=== PATIENT | male | born 1970 | race African-American/Black ===

== ENCOUNTER 2019-08-17 06:46 | Emergency (ER) | payer BC, SELFPAY ==
[2019-08-17 07:47] LABS: #Basophils 0.1 thou/uL (0.0-0.2); #Eosinphils 0.1 thou/uL (0.0-0.7); #Lymphocytes 1.4 thou/uL (1.20-3.40); #Monocytes 0.3 thou/uL (0.11-0.59); #Neutrophils 1.3 thou/uL (1.40-6.50); %Basophils 2.3 % (0.0-1.0); %Eosinophils 4.5 % (0.0-10.0); %Lymphocytes 43.1 % (21.0-51.0); %Monocytes 9.7 % (0.0-10.0); %Neutrophils 40.5 % (42.0-75.0); Hemoglobin 16.2 g/dL (14.0-18.0); Mean Corpuscular HGB CONC 35.2 g/dL (32.0-36.0); Mean Corpuscular Hemoglobin 31.4 pg (27.0-31.0); Mean Corpuscular Volume 89.2 fL (78.0-98.0); Mean Platelet Volume 6.5 fL (7.4-10.4); Platelet Count 186 thou/uL (130-400); RBC Distribution Width 12.2 % (11.5-14.5); Red Blood Cell (RBC) Count 5.16 mill/uL (4.70-6.10); White Blood Cell (WBC) Count 3.3 thou/uL (4.8-10.8)
[2019-08-17] MEDS ORDERED: Acetaminophen 500 MG TAB ONE (07:50)
[2019-08-17] MEDS ORDERED: Aspirin Chewable 81 MG TAB ONE (07:50)
[2019-08-17 08:40] LABS: Anion Gap 12 mmol/L (10-20); BUN (Urea Nitrogen) 17 mg/dL (8.9-20.6); Calc. Creatinine Clearance 0 mL/min (70-130); Calcium 9.5 mg/dL (7.8-10.44); Carbon Dioxide 22 mmol/L (22-29); Chloride 108 mmol/L (98-107); Estimated GFR-MDRD Greater than 90; Glucose 98 mg/dL (70-105); Potassium 3.7 mmol/L (3.5-5.1); Sodium 138 mmol/L (136-145)
--- NOTE | 2019-08-17 09:21 | RAD ---
CHEST TWO VIEWS: HISTORY: Left-sided chest pain. FINDINGS: Heart size is normal. Lungs are clear. No confluent pneumonia, overt edema or pleural effusion. IMPRESSION: No significant acute intrathoracic disease. POS: [facility]
--- NOTE | 2019-08-20 12:02 | EKG ---
Test Reason : Blood Pressure : / mmHG Vent. Rate : 062 BPM Atrial Rate : 062 BPM P-R Int : 184 ms QRS Dur : 082 ms QT Int : 386 ms P-R-T Axes : 060 007 034 degrees QTc Int : 391 ms Normal sinus rhythm Cannot rule out Anterior infarct , age undetermined Abnormal ECG Confirmed by FRACISCO RICH ([id number]), non linear editor BARBARA NAVA ([id number]) on 08/20/2019 12:02:34 PM Referred By: LAYLA Confirmed By:FRACISCO RICH
== END 2019-08-17 08:49 | disposition home or self-care (01) ==
LOC: ERS 06:46
DX: R07.9 Chest pain, unspecified (principal); R51 Headache
CPT/HCPCS: 36415; 71046; 80048; 84484; 85025; 93005

== ENCOUNTER 2020-01-16 10:00 | Emergency (ER) | payer SELFPAY ==
--- NOTE | 2020-01-16 10:44 | RAD ---
RIGHT SHOULDER 3 VIEWS: Date: 01/16/2020 HISTORY: Right shoulder pain. FINDINGS/IMPRESSION: There are degenerative changes in the acromioclavicular joint. No acute fracture, dislocation, or bon y destruction is seen. POS: OFF
[2020-01-16] MEDS ORDERED: Dexamethasone 10 MG/ML VIAL ONE (11:07)
[2020-01-16] MEDS ORDERED: Ketorolac Tromethamine 30 MG/ML VIAL ONE (11:07)
== END 2020-01-16 11:27 | disposition home or self-care (01) ==
LOC: ERS 10:00
DX: S43.401A Unspecified sprain of right shoulder joint, initial encounter (principal); X58.XXXA Exposure to other specified factors, initial encounter
CPT/HCPCS: 93005; 96372; J1100; J1885

== ENCOUNTER 2023-08-22 06:32 | Inpatient (IN) | payer SELFPAY ==
[2023-08-22] MEDS ORDERED: Piperacillin/Tazobactam 3.375 GM VIAL ONE (07:20)
[2023-08-22 07:47] LABS: #Eosinphils 0.1 thou/uL (0.0-0.7); #Monocytes 0.8 thou/uL (0.11-0.59); %Basophils 0.1 % (0.0-1.0); %Eosinophils 0.9 % (0.0-10.0); %Lymphocytes 23.2 % (21.0-51.0); %Monocytes 9.8 % (0.0-10.0); %Neutrophils 65.7 % (42.0-75.0); Hematocrit 49.6 % (42.0-52.0); Hemoglobin 17.7 g/dL (14.0-18.0); Mean Corpuscular HGB CONC 35.7 g/dL (32.0-36.0); Mean Corpuscular Hemoglobin 30.9 pg (27.0-31.0); Mean Corpuscular Volume 86.6 fl (78.0-98.0); Mean Platelet Volume 9.4 fL (7.4-10.4); Platelet Count 212 10x3/uL (130-400); RBC Distribution Width 12.7 % (11.5-14.5); Red Blood Cell (RBC) Count 5.73 mill/uL (4.70-6.10); White Blood Cell (WBC) Count 7.7 10x3/uL (4.8-10.8)
[2023-08-22] MEDS ORDERED: Vancomycin 1 GM/200 ML (FROZEN) BAG ONE (08:02)
[2023-08-22 08:03] LABS: ALT (SGPT) 21 U/L (8-55); AST (SGOT) 16 U/L (5-34); Albumin 4.4 g/dL (3.5-5.0); Alkaline Phosphatase 72 U/L (40-110); Anion Gap 15 mmol/L (10-20); BUN (Urea Nitrogen) 22 mg/dL (8.4-25.7); Bilirubin, Total 0.7 mg/dL (0.2-1.2); Calc. Creatinine Clearance 0 mL/min (70-130); Carbon Dioxide 25 mmol/L (22-29); Chloride 103 mmol/L (98-107); Estimated GFR 84; Globulin 4.3 g/dL (2.4-3.5); Glucose 127 mg/dL (70-105); Potassium 3.9 mmol/L (3.5-5.1); Protein, Total 8.7 g/dL (6.0-8.3); Sodium 139 mmol/L (136-145)
[2023-08-22] MEDS ORDERED: Boostrix 0.5 ML (Tdap) VIAL (>/=7 yrs of age) ONE (09:42)
[2023-08-22] MEDS ORDERED: Fentanyl 250 MCG/5 ML VIAL ONE (10:06)
[2023-08-22] MEDS ORDERED: Lidocaine 1% PF 5 ML VIAL ONE (10:50)
[2023-08-22] MEDS ORDERED: Ondansetron PF 4 MG/2 ML Vial ONE (10:50)
[2023-08-22] MEDS ORDERED: PROPOFOL 200 MG/20 ML VIAL ONE (10:50)
[2023-08-22] MEDS ORDERED: Phenylephrine 10 MG/ML VIAL ONE (11:04)
[2023-08-22] MEDS ORDERED: HYDROmorphone 2 MG/ML VIAL SLOW IVP PRN (11:15)
[2023-08-22] MEDS ORDERED: PACU-Morphine 4MG/ML VIAL SLOW IVP PRN (11:15)
[2023-08-22] MEDS ORDERED: Ketorolac Tromethamine 30 MG/ML VIAL IVP PRN (11:15)
[2023-08-22] MEDS ORDERED: Morphine Sulfate 2 MG/ML SYRINGE SLOW IVP PRN (11:15)
[2023-08-22] MEDS ORDERED: Promethazine HCl 25 MG/ML VIAL IM PRN (11:15)
[2023-08-22] MEDS ORDERED: Ondansetron HCl/PF 4 MG/2 ML Vial IVP PRN (11:15)
[2023-08-22] MEDS ORDERED: Morphine 2 MG/ML VIAL SLOW IVP PRN (11:39)
[2023-08-22] MEDS ORDERED: Morphine 4 MG/ML VIAL SLOW IVP PRN (11:39)
[2023-08-22] MEDS ORDERED: HYDROcodone/Acetaminophen 10/325 mg Tablet PO PRN ×2 (11:39)
[2023-08-22] MEDS ORDERED: Ondansetron PF 4 MG/2 ML Vial IVP PRN (11:39)
[2023-08-22] MEDS ORDERED: ANTIBIOTICS IVPB PRN (11:52)
[2023-08-22] MEDS ORDERED: Metoprolol Tartrate 5 MG/5 ML VIAL ONE ×2 (12:03→12:23)
[2023-08-22] MEDS ORDERED: Bupivacaine 0.25% HCL 30 ML VIAL ONE (12:12)
[2023-08-22] MEDS ORDERED: Vancomycin 1 GM VIAL ONE (12:12)
[2023-08-22] MEDS ORDERED: Metoprolol Tartrate 5 MG/5 ML VIAL IVP SCH (12:15)
[2023-08-22] MEDS ORDERED: fentaNYL 50 mcg/mL 1 mL Vial ONE (12:26)
[2023-08-22] MEDS ORDERED: Amlodipine 10 MG TAB PO SCH (13:15)
[2023-08-22] MEDS: Ketorolac Tromethamine 30 MG/ML VIAL IVP SCH ×2 (13:57→17:25)
[2023-08-22 15:50] VITALS: BMI 26.6
[2023-08-22] MEDS ORDERED: FLU VACC QS2023-24(6MOS UP)/PF 60 MCG/0.5 ML SYRINGE IM ONE (16:00)
[2023-08-22] MEDS: VANCOMYCIN 1.25 GM/250 ML BAG 1.25 GM in Premix Bag 1 BAG IVPB SCH (20:50)
[2023-08-23] MEDS: Ketorolac Tromethamine 30 MG/ML VIAL IVP SCH ×4 (00:59→17:16)
[2023-08-23] MEDS ORDERED: Acetaminophen 325 MG TAB PO PRN (08:20)
[2023-08-23] MEDS: VANCOMYCIN 1.25 GM/250 ML BAG 1.25 GM in Premix Bag 1 BAG IVPB SCH ×2 (09:01→21:05)
[2023-08-23 20:16] LABS: Vancomycin, Trough 7.9 ug/mL
[2023-08-24] MEDS: VANCOMYCIN 1.25 GM/250 ML BAG 1.25 GM in Premix Bag 1 BAG IVPB SCH ×2 (04:26→13:42)
[2023-08-24] MEDS ORDERED: Amlodipine 10 MG TAB PO SCH (13:15)
[2023-08-24] MEDS ORDERED: LevoFLOXacin 750 mg/D5W 750 MG in Premix Bag 1 BAG IVPB SCH (18:00)
[2023-08-25 05:40] LABS: Hematocrit 42.8 % (42.0-52.0); Hemoglobin 15.3 g/dL (14.0-18.0); Mean Corpuscular HGB CONC 35.7 g/dL (32.0-36.0); Mean Corpuscular Hemoglobin 30.9 pg (27.0-31.0); Mean Corpuscular Volume 86.5 fl (78.0-98.0); Platelet Count 199 10x3/uL (130-400); RBC Distribution Width 12.1 % (11.5-14.5); Red Blood Cell (RBC) Count 4.95 mill/uL (4.70-6.10); White Blood Cell (WBC) Count 5.2 10x3/uL (4.8-10.8)
[2023-08-25 06:20] LABS: Anion Gap 12 mmol/L (10-20); BUN (Urea Nitrogen) 12 mg/dL (8.4-25.7); Calc. Creatinine Clearance 105 mL/min (70-130); Calcium 9.6 mg/dL (7.8-10.44); Carbon Dioxide 21 mmol/L (22-29); Chloride 108 mmol/L (98-107); Estimated GFR 96; Glucose 109 mg/dL (70-105); Potassium 3.9 mmol/L (3.5-5.1); Sodium 137 mmol/L (136-145)
[2023-08-25] MEDS ORDERED: Amlodipine 10 MG TAB PO SCH (09:00)
[2023-08-25 11:43] VITALS: BP 123/78; TEMP 98
== END 2023-08-25 13:30 | disposition home or self-care (01) | DRG 514 ==
LOC: ERS 06:32 → SDC 09:48 → SURG A 11:48
PROVIDERS: ADMIT Orthopaedic Surgery; ATTEND Orthopaedic Surgery
PROC: 0L970ZZ Drainage of Right Hand Tendon, Open Approach (ICD-10-PCS; principal; 2023-08-22)
DX: M65.841 Other synovitis and tenosynovitis, right hand (principal); S61.401A Unspecified open wound of right hand, initial encounter; I10 Essential (primary) hypertension; F17.210 Nicotine dependence, cigarettes, uncomplicated; R50.82 Postprocedural fever; B96.1 Klebsiella pneumoniae [K. pneumoniae] as the cause of diseases classified elsewhere; W31.9XXA Contact with unspecified machinery, initial encounter
CPT/HCPCS: 36415; 80048; 80053; 80202; 83605; 85025; 85027; 86140; 87040; 87070; 87077; 87186; 87205; 90471; 90715; 96365; 96367; J1885; J1956; J2370; J2405; J2543; J2704; J3010; J3370; J3370-JW; S0020